=== PATIENT | female | born 1995 | race Caucasian/White ===

== ENCOUNTER → 2017-01-20 | Outpatient (REF) | payer OTHER ==
[~2017-01-20] MED LIST: ACET50TA PO; ANUS2.5C2 PR; COLA100C PO; DIBU1OIN TOP; FERR325T3 PO; IBUP80TA PO; PRENTAB55 PO; SYNT100T PO; VITA100037 PO; ZYRT10CA PO
== END ==
LOC: M LAB REF 16:20
PROVIDERS: ATTEND Physician Assistant
DX: J03.90 Acute tonsillitis, unspecified (principal)

== ENCOUNTER 2017-10-17 10:23 | Emergency (ER) | payer OTHER ==
[~2017-10-17] VITALS: Ht 160 cm; Wt 95.5 kg
[2017-10-17 10:23] VITALS: BP 131/70
[~2017-10-17 10:23] MED LIST changes: -COLA100C PO; +COLA100C5 PO; -VITA100037 PO; +VITA100067 PO
[2017-10-17] MEDS ORDERED: MONT10TA2 (10:35)
[2017-10-17] MEDS ORDERED: PROZ10CA7 PO (10:35)
[2017-10-17] MEDS ORDERED: JUNE1.5T (10:35)
[2017-10-17] MEDS ORDERED: MEDR4PAK PO (11:21)
[2017-10-17] MEDS ORDERED: AUGM875T28 PO (11:21)
[2017-10-17] MEDS ORDERED: TESS100C PO (11:21)
[2017-10-17] MEDS ORDERED: DIFL150T PO (11:26)
== END 2017-10-17 11:27 | disposition home or self-care (01) ==
LOC: M ED 10:23
DX: J01.90 Acute sinusitis, unspecified (principal)

== ENCOUNTER → 2017-12-10 | Outpatient (REF) | payer OTHER | LOC: M LAB REF 13:01 | DX: J11.1 Influenza due to unidentified influenza virus with other respiratory manifestations (principal) ==

== ENCOUNTER 2018-01-19 17:21 | Emergency (ER) | payer OTHER ==
[2018-01-19 18:49] LABS: KETONE, URINE AUTO RFX NEGATIVE (NEGATIVE); MUCUS, URINE RFX SMALL (NEGATIVE); NITRITE, URINE AUTO RFX NEGATIVE (NEGATIVE); RBC, URINE AUTO RFX 1 /HPF (0-3); SPECIFIC GRAVITY UR AUTO RFX 1.026 (1.002-1.035); SQUAM EPITHELIAL CELL UR AURFX 2 /HPF (0-6); WBC, URINE AUTO RFX 4 /HPF (0-3)
[2018-01-19 18:50] LABS: LEUKOCYTE ESTERASE UR AUTO RFX 1+ (NEGATIVE)
[2018-01-19 19:21] LABS: HCG, SERUM QUANTITATIVE 13123 MIU/ML
[2018-01-19] MEDS: ACETAMINOPHEN TAB 650MG DOSE (2X325MG) PO (19:51)
== END 2018-01-19 20:00 | disposition home or self-care (01) ==
LOC: M ED 17:21
DX: O26.891 Other specified pregnancy related conditions, first trimester (principal); R10.2 Pelvic and perineal pain; Z3A.01 Less than 8 weeks gestation of pregnancy; O99.341 Other mental disorders complicating pregnancy, first trimester; F33.9 Major depressive disorder, recurrent, unspecified; O99.281 Endocrine, nutritional and metabolic diseases complicating pregnancy, first trimester; E03.9 Hypothyroidism, unspecified; Z79.890 Hormone replacement therapy
CPT/HCPCS: 76801

== ENCOUNTER → 2018-02-22 | Outpatient (CLI) | payer MEDICAID ==
[2018-02-22 17:27] LABS: BASO % 0.2 % (0.0-1.0); EOS # 0.2 10^3/uL (0.0-0.50); EOS % 2.2 % (0.0-3.0); HEMATOCRIT 36.3 % (36.0-47.0); HEMOGLOBIN 12.3 g/dl (12.0-15.5); IMMATURE GRANULOCYTE % 0.6 % (0-3.0); LYMPH # 2.3 10^3/uL (1.5-6.5); LYMPH % 24.8 % (24.0-44.0); MEAN CORPUSCULAR HEMOGLOBIN 29.7 pg (27.0-33.0); MEAN CORPUSCULAR HGB CONC 33.9 g/dl (32.0-36.5); MEAN CORPUSCULAR VOLUME 87.7 fl (80.0-96.0); MONO # 0.3 10^3/uL (0.0-0.8); MONO % 3.2 % (0.0-5.0); NEUTROPHILS # 6.5 10^3/uL (1.8-7.7); PLATELET COUNT, AUTOMATED 234 10^3/uL (150-450); RED BLOOD COUNT 4.14 10^6/uL (4.00-5.40); RED CELL DISTRIBUTION WIDTH 13.1 % (11.5-14.5); WHITE BLOOD COUNT 9.4 10^3/uL (4.0-10.0)
[2018-02-22 17:31] LABS: ESTIMATED AVERAGE GLUCOSE 94 MG/DL (60-110); HEMOGLOBIN A1c 4.9 %
[2018-02-22 17:36] LABS: ALT/SGPT 40 U/L (12-78); AST/SGOT 18 U/L (7-37); BILIRUBIN,TOTAL 0.4 MG/DL (0.2-1.0); FREE T4 0.82 NG/DL (0.76-1.46); GLOMERULAR FILTRATION RATE > 60.0 (>60); GLUCOSE CHALLENGE TEST 1 HOUR 118 MG/DL (LESS THAN 140); LDH LACTATE DEHYDROGENASE 141 U/L (84-246); URIC ACID 4.9 MG/DL (2.6-6.0)
[2018-02-22 21:23] LABS: CHLAMYDIA DNA AMPLIFICATION NEGATIVE (NEGATIVE); GC DNA AMPLIFICATION NEGATIVE (NEGATIVE)
[2018-02-23 02:08] LABS: TOTAL PROTEIN,RANDOM URINE 13.6 MG/DL (0.0-12.0)
[2018-02-24 10:28] LABS: RUBELLA IgG QUALITATIVE IMMUNE (IMMUNE)
[2018-02-24 10:31] LABS: HBsAg Prenatal NEGATIVE (NEGATIVE)
[2018-02-24 10:56] LABS: HEPATITIS C VIRUS ABY INDEX < 0.0 INDEX (<0.8)
[2018-02-24 10:57] LABS: HIV 1&2 SCREEN CENTAUR NEGATIVE (NEGATIVE)
== END ==
LOC: M WUC 10:51
DX: Z36.89 Encounter for other specified antenatal screening (principal); Z3A.09 9 weeks gestation of pregnancy
CPT/HCPCS: 84460

== ENCOUNTER → 2018-04-30 | Outpatient (CLI) | payer MEDICAID | LOC: M RAD 17:38 | DX: Z34.82 Encounter for supervision of other normal pregnancy, second trimester (principal); Z36.89 Encounter for other specified antenatal screening; Z3A.20 20 weeks gestation of pregnancy | CPT/HCPCS: 76811 ==

== ENCOUNTER → 2018-06-13 | Outpatient (CLI) | payer MEDICAID ==
[2018-06-13 17:31] LABS: HEMATOCRIT 34.9 % (36.0-47.0); HEMOGLOBIN 11.7 g/dl (12.0-15.5); MEAN CORPUSCULAR HGB CONC 33.5 g/dl (32.0-36.5); MEAN CORPUSCULAR VOLUME 92.6 fl (80.0-96.0); PLATELET COUNT, AUTOMATED 233 10^3/uL (150-450); RED BLOOD COUNT 3.77 10^6/uL (4.00-5.40); RED CELL DISTRIBUTION WIDTH 13.3 % (11.5-14.5)
[2018-06-14 10:56] LABS: GLUCOSE CHALLENGE TEST 1 HOUR 168 MG/DL (LESS THAN 140)
[2018-06-14 10:56] LABS: WHITE BLOOD COUNT 10.9 10^3/uL (4.0-10.0)
[2018-06-15 06:35] LABS: AB SCREEN (INDIRECT COOMBS)VIS 1 1
== END ==
LOC: M LRY 09:41
DX: Z34.82 Encounter for supervision of other normal pregnancy, second trimester (principal)
CPT/HCPCS: 82950

== ENCOUNTER → 2018-06-15 | Outpatient (CLI) | payer MEDICAID ==
[2018-06-15 10:35] LABS: GLUCOSE, FASTING 77 MG/DL (LESS THAN 95)
[2018-06-15 11:37] LABS: 1 HR GLUCOSE 152 MG/DL (LESS THAN 180)
[2018-06-15 12:51] LABS: 2 HR GLUCOSE 104 MG/DL (LESS THAN 155)
[2018-06-15 13:16] LABS: 3 HR GLUCOSE 103 MG/DL (LESS THAN 140)
== END ==
LOC: M LAB 09:15
DX: Z34.83 Encounter for supervision of other normal pregnancy, third trimester (principal); R73.02 Impaired glucose tolerance (oral)
CPT/HCPCS: 82951

== ENCOUNTER → 2018-08-02 | Outpatient (REF) | payer MEDICAID | LOC: M LAB REF 15:16 | DX: O62.0 Primary inadequate contractions (principal) ==

== ENCOUNTER → 2018-08-13 | Outpatient (REF) | payer MEDICAID | LOC: M LAB REF 13:11 | DX: Z34.83 Encounter for supervision of other normal pregnancy, third trimester (principal) | CPT/HCPCS: 87186 ==

== ENCOUNTER 2018-08-23 20:54 | Inpatient (IN) | payer MEDICAID ==
[2018-08-23] MEDS ORDERED: ONDANSETRON 4MG/2ML VIAL (J2405) As Ordered (21:54)
[2018-08-23] MEDS: ONDANSETRON 4MG/2ML VIAL (J2405) IV (22:01)
[2018-08-23] MEDS: BETAMETHASONE SOLUSPAN 6MG/ML INJ 5ML (J0702) IM (22:01)
[2018-08-23] MEDS: LACTATED RINGER'S 1000 ML IV (22:02)
[2018-08-23] MEDS: PENICILLIN G POTASSIUM IV 5 MU in D5W MINI-BAG PLUS 100 ML IV (22:02)
[2018-08-23 22:06] LABS: HEMATOCRIT 36.2 % (36.0-47.0); MEAN CORPUSCULAR HEMOGLOBIN 28.2 pg (27.0-33.0); MEAN CORPUSCULAR HGB CONC 33.1 g/dl (32.0-36.5); MEAN CORPUSCULAR VOLUME 85.2 fl (80.0-96.0); PLATELET COUNT, AUTOMATED 219 10^3/uL (150-450); RED BLOOD COUNT 4.25 10^6/uL (4.00-5.40); RED CELL DISTRIBUTION WIDTH 12.9 % (11.5-14.5); WHITE BLOOD COUNT 10.8 10^3/uL (4.0-10.0)
[2018-08-23 22:17] LABS: AMPHETAMINES URINE REFLEX NEGATIVE (NEGATIVE); BARBITURATES URINE REFLEX NEGATIVE (NEGATIVE); BENZODIAZEPINES URINE REFLEX NEGATIVE (NEGATIVE); CANNABINOIDS URINE REFLEX NEGATIVE (NEGATIVE); COCAINE METABOLITE URINE REFLE NEGATIVE (NEGATIVE); METHADONE URINE REFLEX NEGATIVE (NEGATIVE); OPIATES URINE REFLEX NEGATIVE (NEGATIVE); PHENCYCLIDINE URINE REFLEX NEGATIVE (NEGATIVE)
[2018-08-23 22:27] LABS: FREE T4 0.74 NG/DL (0.76-1.46)
[2018-08-23] MEDS: BICITRA 30ML SOLN UDC PO (23:00)
[2018-08-24] MEDS: PENICILLIN G POTASSIUM IV 2.5 MU in APPROPRIATE DILUENT 1 EA IV ×5 (02:11→18:21)
[2018-08-24] MEDS: LR 1,000 ML IV ×3 (02:12→14:14)
[2018-08-24 08:37] LABS: THYROXINE (T4) 9.4 UG/DL (4.5-12.0)
[2018-08-24 08:37] LABS: FREE T3 2.5 PG/ML (2.2-4.0)
[2018-08-24] MEDS: LEVOTHYROXINE 125MCG TABLET (0.125MG) PO (08:42)
[2018-08-24] MEDS: FLUoxetine 20 MG CAP PO (08:42)
[2018-08-24 09:46] LABS: TOTAL T3 177.5 NG/DL (60.0-181.0)
[2018-08-24] MEDS: CALCIUM CARBONATE 500 MG CHEW U/D PO (09:57)
[2018-08-24] MEDS: ACETAMINOPHEN TAB 650MG DOSE (2X325MG) PO (14:15)
== END 2018-08-24 21:50 | disposition home or self-care (01) | DRG 563 ==
LOC: M LDO 20:54 → M LDI 21:20
PROVIDERS: Advanced Practice Midwife
DX: O60.03 Preterm labor without delivery, third trimester (principal); E03.9 Hypothyroidism, unspecified; Z3A.36 36 weeks gestation of pregnancy; O99.820 Streptococcus B carrier state complicating pregnancy; O99.283 Endocrine, nutritional and metabolic diseases complicating pregnancy, third trimester

== ENCOUNTER → 2018-09-02 | Outpatient (REF) | payer MEDICAID | LOC: M LAB REF 13:55 | DX: Z34.83 Encounter for supervision of other normal pregnancy, third trimester (principal); R31.0 Gross hematuria ==

== ENCOUNTER 2018-09-03 21:35 | Inpatient (IN) | payer MEDICAID ==
[2018-09-03] MEDS: PENICILLIN G POTASSIUM IV 5 MU in D5W MINI-BAG PLUS 100 ML IV (23:15)
[2018-09-03 23:21] LABS: HEMOGLOBIN 11.7 g/dl (12.0-15.5); MEAN CORPUSCULAR HEMOGLOBIN 27.8 pg (27.0-33.0); MEAN CORPUSCULAR HGB CONC 32.5 g/dl (32.0-36.5); MEAN CORPUSCULAR VOLUME 85.5 fl (80.0-96.0); PLATELET COUNT, AUTOMATED 224 10^3/uL (150-450); RED BLOOD COUNT 4.21 10^6/uL (4.00-5.40); RED CELL DISTRIBUTION WIDTH 13.1 % (11.5-14.5); WHITE BLOOD COUNT 13.7 10^3/uL (4.0-10.0)
[2018-09-04] MEDS: CEPHALEXIN 500 MG CAP PO ×5 (00:27→23:51)
[2018-09-04] MEDS: PENICILLIN G POTASSIUM IV 2.5 MU in APPROPRIATE DILUENT 1 EA IV ×2 (03:14→07:38)
[2018-09-04] MEDS: BUTORPHANOL 2 MG/ML INJ (J0595) IV (05:11)
[2018-09-04] MEDS: PROMETHAZINE INJ 25 MG/ML VIAL (J2550) IV (05:12)
[2018-09-04] MEDS: LEVOTHYROXINE 125MCG TABLET (0.125MG) PO (06:04)
[2018-09-04] MEDS ORDERED: FENTANYL 2MCG/ML ROPIVACAINE 0.2% IN 0.9% NACL 200ML IVBAG As Ordered (06:27)
[2018-09-04] MEDS: FENTANYL/ROPIVACAINE/NACL BAG 200 ML EPIDURAL (07:45)
[2018-09-04] MEDS ORDERED: ePHEDrine SULFATE 25 MG/5 ML(5MG/ML) SYRINGE As Ordered (08:24)
[2018-09-04] MEDS ORDERED: EPIDURAL COMMENT XX (08:45)
[2018-09-04] MEDS ORDERED: EPIDURAL/PCA KEYS XX (08:45)
[2018-09-04] MEDS ORDERED: NALOXONE INJ 0.4 MG/1 ML VIAL (J2310) IV (08:45)
[2018-09-04] MEDS ORDERED: ePHEDrine SULFATE 25 MG/5 ML(5MG/ML) SYRINGE IV (08:45)
[2018-09-04] MEDS ORDERED: LACTATED RINGER'S 1000 ML IV (08:45)
[2018-09-04] MEDS ORDERED: ONDANSETRON 4MG/2ML VIAL (J2405) IV (08:45)
[2018-09-04] MEDS ORDERED: REFRIGERATOR IV KEYS XX (08:45)
[2018-09-04] MEDS ORDERED: diphenhydrAMINE INJ 50MG/ML VIAL (J1200) IV (08:45)
[2018-09-04] MEDS ORDERED: OXYTOCIN 30 UNITS IN 0.9% NaCl 500ML IV BAG (J2590) As Ordered (08:46)
[2018-09-04] MEDS: PRENATAL VITAMINS CHEWABLE TABLET PO (09:00)
[2018-09-04 09:37] LABS: CORD GAS ABE V -5.3; CORD GAS HCO3 V 18.8 MEQ/L; CORD GAS PCO2 V 32.9 mmHg; CORD GAS PH V 7.374 UNITS; CORD GAS PO2 V 27.9 mmHg; CORD GAS SBC V 19.5 MEQ/L; CORD GAS TCO2 V 19.8 MEQ/L
[2018-09-04 09:40] LABS: CORD GAS ABE A -7.2; CORD GAS HCO3 A 22.9 MEQ/L; CORD GAS O2 SAT A 39.6 %; CORD GAS PCO2 A 66.3 mmHg; CORD GAS PH A 7.157 UNITS; CORD GAS PO2 A 21.4 mmHg; CORD GAS SBC A 17.4 MEQ/L
[2018-09-04] MEDS ORDERED: MEASLES,MUMPS,RUBELLA VACCINE INJ (MMR-II) (90707) SC (10:00)
[2018-09-04] MEDS ORDERED: ANUSOL HC CREAM 30GM TOP (10:00)
[2018-09-04] MEDS: OXYTOCIN DRIP 30 UNITS in APPROPRIATE DILUENT 1 EA IV (10:00)
[2018-09-04] MEDS ORDERED: DOCUSATE SODIUM 100 MG CAP PO (10:00)
[2018-09-04] MEDS ORDERED: METHYLERGONOVINE MALEATE 0.2 MG TAB PO (10:00)
[2018-09-04] MEDS: FLUoxetine 10 MG CAP PO (12:10)
[2018-09-04] MEDS: DIBUCAINE 1% OINTMENT 30GM TOP (14:43)
[2018-09-04] MEDS: IBUPROFEN 800 MG TAB PO (14:44)
[2018-09-04] MEDS: ACETAMINOPHEN 500 MG TAB PO (15:53)
[2018-09-05] MEDS: IBUPROFEN 800 MG TAB PO ×3 (00:48→18:24)
[2018-09-05] MEDS: CEPHALEXIN 500 MG CAP PO ×4 (06:17→23:58)
[2018-09-05] MEDS: LEVOTHYROXINE 125MCG TABLET (0.125MG) PO (06:17)
[2018-09-05 06:51] LABS: HEMATOCRIT 28.7 % (36.0-47.0); MEAN CORPUSCULAR HEMOGLOBIN 27.5 pg (27.0-33.0); MEAN CORPUSCULAR HGB CONC 32.1 g/dl (32.0-36.5); MEAN CORPUSCULAR VOLUME 85.7 fl (80.0-96.0); PLATELET COUNT, AUTOMATED 185 10^3/uL (150-450); RED BLOOD COUNT 3.35 10^6/uL (4.00-5.40); RED CELL DISTRIBUTION WIDTH 13.2 % (11.5-14.5); WHITE BLOOD COUNT 12.9 10^3/uL (4.0-10.0)
[2018-09-05 06:58] LABS: HEMOGLOBIN 9.2 g/dl (12.0-15.5)
[2018-09-05] MEDS ORDERED: FLUoxetine 20 MG CAP PO (09:00)
[2018-09-05] MEDS: INFLUENZA QUADRIVALENT PF VACCINE 0.5ML SYRINGE (90686) IM (09:47)
[2018-09-05] MEDS: ADACEL/BOOSTRIX VACCINE (DIPHTH/PERTUSS/ACELL/TETANUS)0.5ML SYR (90715) IM (09:48)
[2018-09-05] MEDS: FLUoxetine 10 MG CAP PO (09:54)
[2018-09-05] MEDS: PRENATAL VITAMINS CHEWABLE TABLET PO (09:55)
[2018-09-06] MEDS: ACETAMINOPHEN 500 MG TAB PO ×2 (00:35→11:57)
[2018-09-06] MEDS: IBUPROFEN 800 MG TAB PO (03:44)
[2018-09-06] MEDS: LEVOTHYROXINE 125MCG TABLET (0.125MG) PO (06:00)
[2018-09-06] MEDS: CEPHALEXIN 500 MG CAP PO ×2 (06:00→13:34)
[2018-09-06 08:42] LABS: FETAL SCREEN PROF. 1 1
[2018-09-06] MEDS: PRENATAL VITAMINS CHEWABLE TABLET PO (09:08)
[2018-09-06] MEDS: FLUoxetine 20 MG CAP PO (09:08)
[2018-09-06] MEDS: RHOGAM 300 MCG (1500 IU) INJ (J2790) IM (09:11)
== END 2018-09-06 14:30 | disposition home or self-care (01) | DRG 560 ==
LOC: M LDO 21:35 → M OBS 09-04 12:22 → M LDI 22:53
PROVIDERS: Advanced Practice Midwife
PROC: 10E0XZZ Delivery of Products of Conception, External Approach (ICD-10-PCS; principal; 2018-09-04)
PROC: 0HQ9XZZ Repair Perineum Skin, External Approach (ICD-10-PCS; 2018-09-04)
PROC: 10907ZC Drainage of Amniotic Fluid, Therapeutic from Products of Conception, Via Natural or Artificial Opening (ICD-10-PCS; 2018-09-04)
DX: O99.284 Endocrine, nutritional and metabolic diseases complicating childbirth (principal); E03.9 Hypothyroidism, unspecified; Z37.0 Single live birth; Z3A.38 38 weeks gestation of pregnancy; Z91.14 Patient's other noncompliance with medication regimen; O69.82X0 Labor and delivery complicated by other cord entanglement, without compression, not applicable or unspecified; O99.820 Streptococcus B carrier state complicating pregnancy; O70.0 First degree perineal laceration during delivery

== ENCOUNTER → 2019-01-17 | Outpatient (REF) | payer MEDICAID ==
[~2019-01-17] MED LIST changes: -ACET50TA PO; +AUGM875T28 PO; +DIFL150T PO; +IBUP-1114 PO; +JUNE1.5T; +KEFL500C17 PO; +MAPA500T2 PO; +MEDR4PAK PO; +MONT10TA2; +PRENATAL VIT; +PROZ10CA7 PO; +PROZ20CA11 PO; +PYRI1TAB5 PO; +TESS100C PO
[2019-01-17 19:33] LABS: BASO # 0.1 10^3/uL (0.0-0.2); BASO % 0.6 % (0.0-1.0); EOS # 0.7 10^3/uL (0.0-0.50); EOS % 6.2 % (0.0-3.0); HEMATOCRIT 42.5 % (36.0-47.0); HEMOGLOBIN 13.9 g/dl (12.0-15.5); LYMPH # 3.6 10^3/uL (1.5-6.5); LYMPH % 33.1 % (24.0-44.0); MEAN CORPUSCULAR HGB CONC 32.7 g/dl (32.0-36.5); MEAN CORPUSCULAR VOLUME 82.7 fl (80.0-96.0); MONO # 0.4 10^3/uL (0.0-0.8); MONO % 3.9 % (0.0-5.0); NEUTROPHILS # 6.1 10^3/uL (1.8-7.7); NEUTROPHILS % 55.9 % (36.0-66.0); PLATELET COUNT, AUTOMATED 346 10^3/uL (150-450); RED BLOOD COUNT 5.14 10^6/uL (4.00-5.40); WHITE BLOOD COUNT 10.9 10^3/uL (4.0-10.0)
[2019-01-17 19:41] LABS: ALBUMIN 3.6 GM/DL (3.2-5.2); ALT/SGPT 38 U/L (12-78); BILIRUBIN,TOTAL 0.3 MG/DL (0.2-1.0); BLOOD UREA NITROGEN 13 MG/DL (7-18); CALCIUM LEVEL 8.9 MG/DL (8.5-10.1); CARBON DIOXIDE LEVEL 28 MEQ/L (21-32); CHLORIDE LEVEL 105 MEQ/L (98-107); CHOLESTEROL LEVEL 293 MG/DL (<200); CHOLESTEROL RISK RATIO 5.634 (<5); CREATININE FOR GFR 0.72 MG/DL (0.55-1.30); FREE T4 0.58 NG/DL (0.76-1.46); GLOMERULAR FILTRATION RATE > 60.0 (>60); GLUCOSE, FASTING 107 MG/DL (70-100); HDL CHOLESTEROL 52 MG/DL (>40); LDL CHOLESTEROL 179 MG/DL (<100); NON-HDL-C 241 MG/DL; POTASSIUM SERUM 3.9 MEQ/L (3.5-5.1); SODIUM LEVEL 139 MEQ/L (136-145); TOTAL PROTEIN 7.4 GM/DL (6.4-8.2); TRIGLYCERIDES LEVEL 310 MG/DL (<150)
[2019-01-17 19:44] LABS: TOTAL 25(OH) VITAMIN D 8.2 NG/ML (30.0-100.0)
[2019-01-17 19:55] LABS: HEMOGLOBIN A1c 5.5 %
[2019-01-19 14:12] LABS: Lyme Disease IgG/IgM Antibodie <0.91 ISR (0.00-0.90); Lyme Disease IgM Ab Quantitati <0.80 index (0.00-0.79)
== END ==
LOC: M LAB REF 18:46
PROVIDERS: ATTEND Family Medicine
DX: Z13.228 Encounter for screening for other metabolic disorders (principal); Z00.01 Encounter for general adult medical examination with abnormal findings; F53.0 Postpartum depression

== ENCOUNTER → 2019-03-12 | Outpatient (REF) | payer MEDICAID ==
[2019-03-12 20:16] LABS: APPEARANCE, URINE CLEAR (CLEAR); BACTERIA, URINE AUTO NEGATIVE (NEGATIVE); BILIRUBIN, URINE AUTO NEGATIVE (NEGATIVE); BLOOD, URINE BLOOD NEGATIVE (NEGATIVE); COLOR, URINE YELLOW (YELLOW); GLUCOSE, URINE (UA) AUTO NEGATIVE (NEGATIVE); KETONE, URINE AUTO NEGATIVE (NEGATIVE); LEUKOCYTE ESTERASE, URINE AUTO NEGATIVE (NEGATIVE); MUCUS, URINE SMALL (NEGATIVE); NITRITE, URINE AUTO NEGATIVE (NEGATIVE); PROTEIN, URINE AUTO NEGATIVE (NEGATIVE); RBC, URINE AUTO 0 /HPF (0-3); SPECIFIC GRAVITY URINE AUTO 1.026 (1.002-1.035); SQUAMOUS EPITHELIAL CELL UR AU 5 /HPF (0-6); UROBILINOGEN, URINE AUTO 0.2 mg/dL (0.0-2.0); WBC, URINE AUTO 2 /HPF (0-3)
== END ==
LOC: M LAB REF 18:01
PROVIDERS: ATTEND Nurse Practitioner Family
DX: N39.0 Urinary tract infection, site not specified (principal)

== ENCOUNTER → 2019-05-04 | Outpatient (REF) | payer MEDICAID ==
[2019-05-04 12:51] LABS: ALBUMIN 3.4 GM/DL (3.2-5.2); ALT/SGPT 25 U/L (12-78); BILIRUBIN,TOTAL 0.3 MG/DL (0.2-1.0); BLOOD UREA NITROGEN 14 MG/DL (7-18); CALCIUM LEVEL 8.4 MG/DL (8.5-10.1); CARBON DIOXIDE LEVEL 23 MEQ/L (21-32); CHLORIDE LEVEL 109 MEQ/L (98-107); CHOLESTEROL LEVEL 203 MG/DL (<200); CREATININE FOR GFR 0.68 MG/DL (0.55-1.30); GLOMERULAR FILTRATION RATE > 60.0 (>60); GLUCOSE, FASTING 80 MG/DL (70-100); HDL CHOLESTEROL 51 MG/DL (>40); LDL CHOLESTEROL 113 MG/DL (<100); NON-HDL-C 152 MG/DL; POTASSIUM SERUM 4.1 MEQ/L (3.5-5.1); SODIUM LEVEL 141 MEQ/L (136-145); TOTAL PROTEIN 6.8 GM/DL (6.4-8.2); TRIGLYCERIDES LEVEL 197 MG/DL (<150)
[2019-05-04 13:17] LABS: HEMOGLOBIN A1c 5.5 %
== END ==
LOC: M LAB REF 12:26
PROVIDERS: ATTEND Family Medicine
DX: Z13.228 Encounter for screening for other metabolic disorders (principal); E78.5 Hyperlipidemia, unspecified

== ENCOUNTER → 2019-10-03 | Outpatient (REF) | payer MEDICAID ==
[2019-10-03 18:46] LABS: APPEARANCE, URINE CLOUDY (CLEAR); BACTERIA, URINE AUTO NEGATIVE (NEGATIVE); BILIRUBIN, URINE AUTO NEGATIVE (NEGATIVE); BLOOD, URINE BLOOD 1+ (NEGATIVE); COLOR, URINE YELLOW (YELLOW); GLUCOSE, URINE (UA) AUTO NEGATIVE (NEGATIVE); KETONE, URINE AUTO NEGATIVE (NEGATIVE); LEUKOCYTE ESTERASE, URINE AUTO 3+ (NEGATIVE); NITRITE, URINE AUTO NEGATIVE (NEGATIVE); PROTEIN, URINE AUTO NEGATIVE (NEGATIVE); RBC, URINE AUTO 63 /HPF (0-3); SPECIFIC GRAVITY URINE AUTO 1.019 (1.002-1.035); SQUAMOUS EPITHELIAL CELL UR AU 9 /HPF (0-6); UROBILINOGEN, URINE AUTO 0.2 mg/dL (0.0-2.0); WBC, URINE AUTO 84 /HPF (0-3)
[2019-10-03 20:36] LABS: CHLAMYDIA DNA AMPLIFICATION NEGATIVE (NEGATIVE); GC DNA AMPLIFICATION NEGATIVE (NEGATIVE)
== END ==
LOC: M LAB REF 17:08
PROVIDERS: ATTEND Nurse Practitioner Family
DX: Z11.3 Encounter for screening for infections with a predominantly sexual mode of transmission (principal); R30.0 Dysuria

== ENCOUNTER 2019-11-01 17:15 | Emergency (ER) | payer OTHER ==
[~2019-11-01] VITALS: Ht 157.5 cm; Wt 104.0 kg
[2019-11-01] MEDS ORDERED: tylenol (17:24)
[2019-11-01] MEDS ORDERED: ALBU8.5H (17:24)
[2019-11-01] MEDS ORDERED: LORA-674 (17:24)
[2019-11-01] MEDS ORDERED: BENZ-18 (17:24)
[2019-11-01] MEDS ORDERED: AZIT-12 (17:24)
[2019-11-01] MEDS ORDERED: ONDANSETRON 4 MG ORAL DISINTEGRATING TAB (Q0162 PER 1MG) PO ONE (19:30)
[2019-11-01] MEDS ORDERED: KETOROLAC 30 MG/ML VIAL (J1885) IV ONE (19:30)
[2019-11-01] MEDS ORDERED: GI COCKTAIL 50ML BTL(HYOSCYAMINE/MAALOX/LIDOCAINE VISCOUS)(1:3:1) PO ONE (19:30)
[2019-11-01] MEDS ORDERED: ALBUTEROL SULFATE 2.5 MG/0.5 ML INH NEB SOLN NEB ONE (19:30)
[2019-11-01 19:57] LABS: BASO % 0.2 % (0.0-1.0); EOS % 0.1 % (0.0-3.0); HEMATOCRIT 42.3 % (36.0-47.0); HEMOGLOBIN 13.9 g/dl (12.0-15.5); LYMPH # 2.1 10^3/uL (1.5-5.0); LYMPH % 11.4 % (24.0-44.0); MEAN CORPUSCULAR HGB CONC 32.9 g/dl (32.0-36.5); MEAN CORPUSCULAR VOLUME 88.3 fl (80.0-96.0); MONO # 0.7 10^3/uL (0.0-0.8); MONO % 3.6 % (0.0-5.0); NEUTROPHILS # 15.5 10^3/uL (1.5-8.5); NEUTROPHILS % 84.3 % (36.0-66.0); PLATELET COUNT, AUTOMATED 221 10^3/uL (150-450); RED BLOOD COUNT 4.79 10^6/uL (4.00-5.40); WHITE BLOOD COUNT 18.4 10^3/uL (4.0-10.0)
--- NOTE | 2019-11-01 19:57 | REP ---
Chest x-ray: Two views. History: Cough and fever. Comparison study: September 18, 2016. Findings: There is an infiltrate in the left lower lobe consistent with pneumonia. Remaining lung shine are clear. Pleural angles are sharp. Heart size is normal. Pulmonary vasculature is not increased. No bony abnormality. Impression: Left lower lobe pneumonia. Electronically Signed by Hemal Cunningham MD 11/01/2019 07:49 P
[2019-11-01 20:28] LABS: ALBUMIN 3.4 GM/DL (3.2-5.2); ALT/SGPT 42 U/L (12-78); BILIRUBIN,DIRECT 0.2 MG/DL (0.0-0.2); BILIRUBIN,TOTAL 0.7 MG/DL (0.2-1.0); LIPASE 65 U/L (73-393); TOTAL PROTEIN 7.7 GM/DL (6.4-8.2)
[2019-11-01] MEDS ORDERED: ONDANSETRON 4MG/2ML VIAL (J2405) IV ONE (20:45)
[2019-11-01] MEDS ORDERED: NS 1,000 ML IV ONE (20:45)
[2019-11-01] MEDS ORDERED: ISOVUE-370 76% 100ML VIAL (Q9967) As Ordered ONE (20:56)
[2019-11-01 21:41] LABS: HCG, SERUM QUALITATIVE NEGATIVE (NEGATIVE)
--- NOTE | 2019-11-01 22:42 | REPVR ---
PROCEDURE INFORMATION: Exam: CT Angiography Chest With Contrast Exam date and time: 11/01/2019 10:16 PM Age: 24 years old Clinical indication: Chest pain; Additional info: Pleuritic chest pain, SOB, cough TECHNIQUE: Imaging protocol: Computed tomographic angiography of the chest with intravenous contrast. 3D rendering: MIP and/or 3D reconstructed images were created by the technologist. Radiation optimization: All CT scans at this facility use at least one of these dose optimization techniques: automated exposure control; mA and/or kV adjustment per patient size (includes targeted exams where dose is matched to clinical indication); or iterative reconstruction. Contrast material: ISOVUE 370; Contrast volume: 75 ml; Contrast route: 100; COMPARISON: CR Chest, 2 view PA, Lat 11/01/2019 7:34 PM FINDINGS: Pulmonary arteries: There are no pulmonary emboli. Aorta: There is no aortic dissection or aneurysm. Lungs: Patchy left lower lobe airspace infiltrate consistent with acute pneumonitis. Remaining lungs clear. Pleural space: Unremarkable. No pneumothorax. No pleural effusion. Heart: Unremarkable. No cardiomegaly. No pericardial effusion. Lymph nodes: Unremarkable. No enlarged lymph nodes. Bones/joints: Unremarkable. No acute fracture. Soft tissues: Unremarkable. IMPRESSION: 1. Patchy left lower lobe airspace infiltrate consistent with acute pneumonitis. 2. There is no aortic dissection or aneurysm. 3. There are no pulmonary emboli. Electronically signed by: Isaias Carr On 11/01/2019 22:42:50 PM
[2019-11-01] MEDS ORDERED: AMOX500C PO (23:00)
[2019-11-01] MEDS ORDERED: PROAAER10 INH (23:00)
[2019-11-01] MEDS ORDERED: AMOXICILLIN 500 MG CAP PO ONE (23:00)
[2019-11-01] MEDS ORDERED: TESS100C PO (23:00)
[2019-11-01] MEDS ORDERED: NAPR-837 PO (23:00)
[2019-11-01 23:08] VITALS: BP 132/74
== END 2019-11-01 23:11 | disposition home or self-care (01) ==
LOC: M ED 17:15
DX: J18.9 Pneumonia, unspecified organism (principal); M79.10 Myalgia, unspecified site; R10.13 Epigastric pain; Z79.1 Long term (current) use of non-steroidal anti-inflammatories (NSAID); Z79.51 Long term (current) use of inhaled steroids; Z79.899 Other long term (current) drug therapy
CPT/HCPCS: 71046; 71275; 80047; 80076; 81001; 83690; 84702; 84703; 85025; 85379; 94640; 96361; 96374; 96375; 99284; J1885; J2405; Q0162; Q9967

== ENCOUNTER → 2019-11-30 | Outpatient (REF) | payer OTHER, MEDICAID ==
[~2019-11-30] MED LIST changes: +ALBU8.5H; +AMOX500C PO; +AZIT-12; +BENZ-18; +LORA-674; +NAPR-837 PO; +PROAAER10 INH; +tylenol
[2019-11-30 14:15] LABS: BASO # 0.1 10^3/uL (0.0-0.2); BASO % 0.8 % (0.0-1.0); EOS # 0.9 10^3/uL (0.0-0.5); EOS % 7.3 % (0.0-3.0); HEMATOCRIT 41.2 % (36.0-47.0); HEMOGLOBIN 13.5 g/dl (12.0-15.5); LYMPH # 3.2 10^3/uL (1.5-5.0); LYMPH % 26.5 % (24.0-44.0); MEAN CORPUSCULAR HEMOGLOBIN 29.4 pg (27.0-33.0); MEAN CORPUSCULAR HGB CONC 32.8 g/dl (32.0-36.5); MEAN CORPUSCULAR VOLUME 89.8 fl (80.0-96.0); MONO # 0.6 10^3/uL (0.0-0.8); MONO % 4.9 % (0.0-5.0); NEUTROPHILS # 7.2 10^3/uL (1.5-8.5); NEUTROPHILS % 60.3 % (36.0-66.0); PLATELET COUNT, AUTOMATED 284 10^3/uL (150-450); RED BLOOD COUNT 4.59 10^6/uL (4.00-5.40); WHITE BLOOD COUNT 11.9 10^3/uL (4.0-10.0)
[2019-11-30 14:32] LABS: HEMOGLOBIN A1c 5.5 %
[2019-11-30 15:00] LABS: ALBUMIN 3.8 GM/DL (3.2-5.2); ALT/SGPT 34 U/L (12-78); BILIRUBIN,TOTAL 0.3 MG/DL (0.2-1.0); BLOOD UREA NITROGEN 12 MG/DL (7-18); CALCIUM LEVEL 9.2 MG/DL (8.5-10.1); CARBON DIOXIDE LEVEL 22 MEQ/L (21-32); CHLORIDE LEVEL 110 MEQ/L (98-107); CHOLESTEROL LEVEL 195 MG/DL (<200); CHOLESTEROL RISK RATIO 4.756 (<5); CREATININE FOR GFR 0.78 MG/DL (0.55-1.30); FREE T4 0.62 NG/DL (0.76-1.46); GLOMERULAR FILTRATION RATE > 60.0 (>60); GLUCOSE, FASTING 82 MG/DL (70-100); HDL CHOLESTEROL 41 MG/DL (>40); LDL CHOLESTEROL 116 MG/DL (<100); NON-HDL-C 154 MG/DL; POTASSIUM SERUM 4.4 MEQ/L (3.5-5.1); SODIUM LEVEL 140 MEQ/L (136-145); TOTAL 25(OH) VITAMIN D 13.7 NG/ML (30.0-100.0); TOTAL PROTEIN 7.1 GM/DL (6.4-8.2); TRIGLYCERIDES LEVEL 189 MG/DL (<150)
== END ==
LOC: M LAB REF 12:39
PROVIDERS: ATTEND Physician Assistant
DX: J45.40 Moderate persistent asthma, uncomplicated (principal); E03.9 Hypothyroidism, unspecified; R73.03 Prediabetes; E55.9 Vitamin D deficiency, unspecified; E78.5 Hyperlipidemia, unspecified

== ENCOUNTER → 2020-01-05 | Outpatient (REF) | payer OTHER, MEDICAID ==
[~2020-01-05] MED LIST changes: -MONT10TA2; +MONT10TA4
== END ==
LOC: M LAB REF 15:23 → EEVIPCON 15:23
PROVIDERS: ATTEND Physician Assistant
DX: S81.809A Unspecified open wound, unspecified lower leg, initial encounter (principal); X58.XXXA Exposure to other specified factors, initial encounter

== ENCOUNTER → 2020-04-13 | Outpatient (REF) | payer OTHER, MEDICAID ==
[2020-04-13 13:15] LABS: CHOLESTEROL LEVEL 228 MG/DL (<200); HDL CHOLESTEROL 40 MG/DL (>40); LDL CHOLESTEROL 127 MG/DL (<100); NON-HDL-C 188 MG/DL; TRIGLYCERIDES LEVEL 303 MG/DL (<150)
[2020-04-13 17:54] LABS: THYROID PEROXIDASE ANTIBODY > 1300.0 U/ML (<60.0); TOTAL T3 146.4 NG/DL (60.0-181.0)
== END ==
LOC: M LAB REF 12:12
PROVIDERS: ATTEND Family Medicine
DX: E03.9 Hypothyroidism, unspecified (principal); A49.02 Methicillin resistant Staphylococcus aureus infection, unspecified site

== ENCOUNTER → 2020-07-20 | Outpatient (REF) | payer OTHER, MEDICAID ==
[2020-07-20 13:01] LABS: BASO # 0.1 10^3/uL (0.0-0.2); BASO % 1.1 % (0.0-1.0); EOS # 0.8 10^3/uL (0.0-0.5); EOS % 9.1 % (0.0-3.0); HEMATOCRIT 42.9 % (36.0-47.0); HEMOGLOBIN 13.9 g/dl (12.0-15.5); LYMPH % 36.7 % (24.0-44.0); MEAN CORPUSCULAR HEMOGLOBIN 28.8 pg (27.0-33.0); MEAN CORPUSCULAR HGB CONC 32.4 g/dl (32.0-36.5); MEAN CORPUSCULAR VOLUME 88.8 fl (80.0-96.0); MONO # 0.5 10^3/uL (0.0-0.8); MONO % 5.6 % (0.0-5.0); NEUTROPHILS # 3.9 10^3/uL (1.5-8.5); NEUTROPHILS % 47.1 % (36.0-66.0); PLATELET COUNT, AUTOMATED 259 10^3/uL (150-450); RED BLOOD COUNT 4.83 10^6/uL (4.00-5.40); WHITE BLOOD COUNT 8.3 10^3/uL (4.0-10.0)
[2020-07-20 13:13] LABS: ALBUMIN 3.5 GM/DL (3.2-5.2); ALT/SGPT 58 U/L (12-78); BILIRUBIN,TOTAL 0.4 MG/DL (0.2-1.0); BLOOD UREA NITROGEN 17 MG/DL (7-18); CALCIUM LEVEL 9.1 MG/DL (8.5-10.1); CARBON DIOXIDE LEVEL 24 MEQ/L (21-32); CHLORIDE LEVEL 107 MEQ/L (98-107); CREATININE FOR GFR 0.63 MG/DL (0.55-1.30); FREE T4 0.66 NG/DL (0.76-1.46); GLOMERULAR FILTRATION RATE > 60.0 (>60); GLUCOSE, FASTING 97 MG/DL (70-100); POTASSIUM SERUM 4.5 MEQ/L (3.5-5.1); SODIUM LEVEL 139 MEQ/L (136-145); TOTAL PROTEIN 6.8 GM/DL (6.4-8.2)
[2020-07-20 16:09] LABS: TOTAL T3 148.8 NG/DL (60.0-181.0)
[2020-07-23 09:56] LABS: THYROID PEROXIDASE ANTIBODY > 1300.0 U/ML (<60.0)
== END ==
LOC: M LAB REF 11:43
PROVIDERS: ATTEND Family Medicine Addiction Medicine
DX: E06.3 Autoimmune thyroiditis (principal)

== ENCOUNTER → 2020-09-28 | Outpatient (REF) | payer OTHER, MEDICAID ==
[~2020-09-28] MED LIST changes: -MONT10TA4; +MONT5TAB2
[2020-09-28 13:22] LABS: ALBUMIN 3.7 GM/DL (3.2-5.2); ALT/SGPT 43 U/L (12-78); BILIRUBIN,TOTAL 0.4 MG/DL (0.2-1.0); BLOOD UREA NITROGEN 15 MG/DL (7-18); CALCIUM LEVEL 9.3 MG/DL (8.5-10.1); CARBON DIOXIDE LEVEL 26 MEQ/L (21-32); CHLORIDE LEVEL 106 MEQ/L (98-107); CHOLESTEROL LEVEL 165 MG/DL (<200); CHOLESTEROL RISK RATIO 4.125 (<5); CREATININE FOR GFR 0.66 MG/DL (0.55-1.30); GLOMERULAR FILTRATION RATE > 60.0 (>60); GLUCOSE, FASTING 94 MG/DL (70-100); HDL CHOLESTEROL 40 MG/DL (>40); LDL CHOLESTEROL 82 MG/DL (<100); NON-HDL-C 125 MG/DL; POTASSIUM SERUM 4.4 MEQ/L (3.5-5.1); SODIUM LEVEL 139 MEQ/L (136-145); TOTAL PROTEIN 6.8 GM/DL (6.4-8.2); TRIGLYCERIDES LEVEL 217 MG/DL (<150)
== END ==
LOC: M LAB REF 11:54
PROVIDERS: ATTEND Family Medicine Addiction Medicine
DX: E03.9 Hypothyroidism, unspecified (principal)

== ENCOUNTER → 2020-12-21 | Outpatient (REF) | payer OTHER, MEDICAID ==
[~2020-12-21] MED LIST changes: +MONT10TA10; -MONT5TAB2
[2020-12-21 13:06] LABS: CHOLESTEROL RISK RATIO 4.404 (<5)
== END ==
LOC: M LAB REF 11:47
PROVIDERS: ATTEND Family Medicine Addiction Medicine
DX: Z00.00 Encounter for general adult medical examination without abnormal findings (principal)

== ENCOUNTER → 2021-02-22 | Outpatient (REF) | payer OTHER ==
[2021-02-22 17:52] LABS: BASO # 0.1 10^3/uL (0.0-0.2); BASO % 0.8 % (0.0-1.0); EOS # 0.7 10^3/uL (0.0-0.5); EOS % 6.1 % (0.0-3.0); HEMATOCRIT 44.5 % (36.0-47.0); HEMOGLOBIN 14.4 g/dl (12.0-15.5); LYMPH # 3.7 10^3/uL (1.5-5.0); LYMPH % 34.1 % (24.0-44.0); MEAN CORPUSCULAR HEMOGLOBIN 28.6 pg (27.0-33.0); MEAN CORPUSCULAR HGB CONC 32.4 g/dl (32.0-36.5); MEAN CORPUSCULAR VOLUME 88.3 fl (80.0-96.0); MONO # 0.5 10^3/uL (0.0-0.8); MONO % 4.9 % (2.0-8.0); NEUTROPHILS # 5.9 10^3/uL (1.5-8.5); NEUTROPHILS % 53.8 % (36.0-66.0); PLATELET COUNT, AUTOMATED 304 10^3/uL (150-450); RED BLOOD COUNT 5.04 10^6/uL (4.00-5.40)
== END ==
LOC: M LAB REF 16:57
PROVIDERS: ATTEND Family Medicine Addiction Medicine
DX: N92.0 Excessive and frequent menstruation with regular cycle (principal)

== ENCOUNTER → 2021-05-07 | Outpatient (REF) | payer OTHER ==
[2021-05-07 20:18] LABS: CLOSTRIDIUM DIFFICILE PCR POSITIVE (NEGATIVE)
== END ==
LOC: M LAB REF 16:03
PROVIDERS: ATTEND Physician Assistant Surgical
DX: K91.89 Other postprocedural complications and disorders of digestive system (principal); R19.7 Diarrhea, unspecified; Z98.84 Bariatric surgery status

== ENCOUNTER → 2021-05-27 | Outpatient (CLI) | payer OTHER ==
[2021-05-27 17:31] LABS: ALBUMIN 3.9 GM/DL (3.2-5.2); ALT/SGPT 103 U/L (12-78); BILIRUBIN,TOTAL 0.6 MG/DL (0.2-1.0); BLOOD UREA NITROGEN 9 MG/DL (7-18); CALCIUM LEVEL 9.3 MG/DL (8.5-10.1); CARBON DIOXIDE LEVEL 27 MEQ/L (21-32); CHLORIDE LEVEL 111 MEQ/L (98-107); CREATININE FOR GFR 0.57 MG/DL (0.55-1.30); FERRITIN 75 NG/ML (8-252); GLOMERULAR FILTRATION RATE > 60.0 (>60); GLUCOSE, FASTING 83 MG/DL (70-100); IRON (FE) 64 UG/DL (50-170); MAGNESIUM LEVEL 1.8 MG/DL (1.8-2.4); PERCENT SATURATION 20.8 % (13.2-45.0); PHOSPHORUS LEVEL 3.3 MG/DL (2.5-4.9); POTASSIUM SERUM 4.3 MEQ/L (3.5-5.1); SODIUM LEVEL 145 MEQ/L (136-145); TOTAL IRON BINDING CAPACITY 308 UG/DL (250-450); TOTAL PROTEIN 6.5 GM/DL (6.4-8.2)
[2021-05-27 17:39] LABS: BASO # 0.1 10^3/uL (0.0-0.2); BASO % 0.8 % (0.0-1.0); EOS # 0.4 10^3/uL (0.0-0.5); EOS % 4.7 % (0.0-3.0); HEMATOCRIT 41.1 % (36.0-47.0); HEMOGLOBIN 13.4 g/dl (12.0-15.5); LYMPH # 2.8 10^3/uL (1.5-5.0); LYMPH % 37.5 % (24.0-44.0); MEAN CORPUSCULAR HEMOGLOBIN 28.6 pg (27.0-33.0); MEAN CORPUSCULAR HGB CONC 32.6 g/dl (32.0-36.5); MEAN CORPUSCULAR VOLUME 87.6 fl (80.0-96.0); MONO # 0.5 10^3/uL (0.0-0.8); MONO % 7.3 % (2.0-8.0); NEUTROPHILS # 3.7 10^3/uL (1.5-8.5); NEUTROPHILS % 49.6 % (36.0-66.0); PLATELET COUNT, AUTOMATED 229 10^3/uL (150-450); RED BLOOD COUNT 4.69 10^6/uL (4.00-5.40); WHITE BLOOD COUNT 7.4 10^3/uL (4.0-10.0)
[2021-05-27 17:40] LABS: HEMATOCRIT 41.7 % (36.0-47.0)
[2021-05-27 17:41] LABS: TOTAL 25(OH) VITAMIN D 23.5 NG/ML (30.0-100.0); VITAMIN B12 LEVEL 1517 PG/ML (247-911)
[2021-05-27 18:04] LABS: HEMOGLOBIN A1c 5.1 %
== END ==
LOC: M WUC 13:17
PROVIDERS: ATTEND Physician Assistant Surgical
DX: K91.2 Postsurgical malabsorption, not elsewhere classified (principal); Z98.84 Bariatric surgery status; E55.9 Vitamin D deficiency, unspecified; Z86.39 Personal history of other endocrine, nutritional and metabolic disease

== ENCOUNTER → 2021-07-05 | Outpatient (REF) | payer OTHER ==
[2021-07-05 16:52] LABS: APPEARANCE, URINE CLOUDY (CLEAR); BACTERIA, URINE AUTO 1+ (NEGATIVE); BILIRUBIN, URINE AUTO NEGATIVE (NEGATIVE); BLOOD, URINE BLOOD 1+ (NEGATIVE); CALCIUM OXALATE CRYSTALS SMALL; COLOR, URINE AMBER (YELLOW); GLUCOSE, URINE (UA) AUTO NEGATIVE (NEGATIVE); KETONE, URINE AUTO NEGATIVE (NEGATIVE); LEUKOCYTE ESTERASE, URINE AUTO 3+ (NEGATIVE); MUCUS, URINE LARGE (NEGATIVE); NITRITE, URINE AUTO NEGATIVE (NEGATIVE); PROTEIN, URINE AUTO 1+ mg/dL (NEGATIVE); RBC, URINE AUTO 4 /HPF (0-3); SPECIFIC GRAVITY URINE AUTO 1.028 (1.002-1.035); SQUAMOUS EPITHELIAL CELL UR AU 47 /HPF (0-6); TRANSITIONAL EPITHELIAL AUTO 1 /HPF; WBC, URINE AUTO TNTC /HPF (0-3)
== END ==
LOC: M LAB REF 16:30
PROVIDERS: ATTEND Physician Assistant Medical
DX: N39.0 Urinary tract infection, site not specified (principal)

== ENCOUNTER → 2021-10-15 | Outpatient (CLI) | payer OTHER ==
--- NOTE | 2021-10-15 09:47 | REP ---
INDICATION: DYSPNEA, UNSPECIFIED COMPARISON: 11/01/2019 TECHNIQUE: PA and lateral. FINDINGS: The mediastinum and cardiac silhouette are normal. The lung shine are clear and without acute consolidation, effusion, or pneumothorax. The skeletal structures are intact and normal. IMPRESSION: No acute cardiopulmonary process. <Electronically signed by Yves Summers > 10/15/21 0974
[2021-10-15 10:34] LABS: BASO # 0.1 10^3/uL (0.0-0.2); BASO % 1.3 % (0.0-1.0); EOS # 0.6 10^3/uL (0.0-0.5); EOS % 7.9 % (0.0-3.0); HEMATOCRIT 36.5 % (36.0-47.0); HEMOGLOBIN 12.1 g/dl (12.0-15.5); LYMPH # 2.3 10^3/uL (1.5-5.0); LYMPH % 32.2 % (24.0-44.0); MEAN CORPUSCULAR HEMOGLOBIN 29.3 pg (27.0-33.0); MEAN CORPUSCULAR HGB CONC 33.2 g/dl (32.0-36.5); MEAN CORPUSCULAR VOLUME 88.4 fl (80.0-96.0); MONO # 0.4 10^3/uL (0.0-0.8); MONO % 5.6 % (2.0-8.0); NEUTROPHILS # 3.7 10^3/uL (1.5-8.5); NEUTROPHILS % 52.9 % (36.0-66.0); PLATELET COUNT, AUTOMATED 280 10^3/uL (150-450); RED BLOOD COUNT 4.13 10^6/uL (4.00-5.40)
== END ==
LOC: M RAD 09:29
PROVIDERS: ATTEND Physician Assistant
DX: R06.00 Dyspnea, unspecified (principal)

== ENCOUNTER → 2022-04-21 | Outpatient (CLI) | payer OTHER ==
[~2022-04-21] MED LIST changes: -MONT10TA10; +MONT10TA97
[2022-04-21 11:12] LABS: HEMATOCRIT 39.7 % (36.0-47.0)
[2022-04-21 11:14] LABS: BASO % 0.5 % (0.0-1.0); EOS # 0.3 10^3/uL (0.0-0.5); EOS % 3.3 % (0.0-3.0); HEMATOCRIT 39.6 % (36.0-47.0); LYMPH # 2.8 10^3/uL (1.5-5.0); LYMPH % 35.5 % (24.0-44.0); MEAN CORPUSCULAR HEMOGLOBIN 30.3 pg (27.0-33.0); MEAN CORPUSCULAR HGB CONC 32.8 g/dl (32.0-36.5); MEAN CORPUSCULAR VOLUME 92.3 fl (80.0-96.0); MONO # 0.4 10^3/uL (0.0-0.8); MONO % 4.6 % (2.0-8.0); NEUTROPHILS # 4.4 10^3/uL (1.5-8.5); NEUTROPHILS % 55.8 % (36.0-66.0); PLATELET COUNT, AUTOMATED 201 10^3/uL (150-450); RED BLOOD COUNT 4.29 10^6/uL (4.00-5.40); WHITE BLOOD COUNT 7.9 10^3/uL (4.0-10.0)
[2022-04-21 12:14] LABS: ALBUMIN 3.6 GM/DL (3.2-5.2); ALT/SGPT 24 U/L (12-78); BILIRUBIN,TOTAL 0.8 MG/DL (0.2-1.0); BLOOD UREA NITROGEN 15 MG/DL (7-18); CALCIUM LEVEL 9.3 MG/DL (8.5-10.1); CARBON DIOXIDE LEVEL 26 MEQ/L (21-32); CHLORIDE LEVEL 108 MEQ/L (98-107); CREATININE FOR GFR 0.64 MG/DL (0.55-1.30); FERRITIN 37 NG/ML (8-252); GLOMERULAR FILTRATION RATE > 60.0 (>60); GLUCOSE, FASTING 72 MG/DL (70-100); IRON (FE) 111 UG/DL (50-170); PERCENT SATURATION 29.1 % (13.2-45.0); PHOSPHORUS LEVEL 3.1 MG/DL (2.5-4.9); POTASSIUM SERUM 3.9 MEQ/L (3.5-5.1); SODIUM LEVEL 142 MEQ/L (136-145); TOTAL 25(OH) VITAMIN D 28.3 NG/ML (30.0-100.0); TOTAL IRON BINDING CAPACITY 382 UG/DL (250-450); TOTAL PROTEIN 6.4 GM/DL (6.4-8.2); VITAMIN B12 LEVEL 363 PG/ML (247-911)
[2022-04-21 15:22] LABS: HEMOGLOBIN A1c 4.8 %
== END ==
LOC: M WUC 08:21
PROVIDERS: ATTEND Physician Assistant Surgical
DX: K91.2 Postsurgical malabsorption, not elsewhere classified (principal); Z98.84 Bariatric surgery status; E55.9 Vitamin D deficiency, unspecified; Z86.39 Personal history of other endocrine, nutritional and metabolic disease

== ENCOUNTER → 2022-04-30 | Outpatient (REF) | payer OTHER | LOC: M LAB REF 16:07 | PROVIDERS: ATTEND Physician Assistant | DX: M79.10 Myalgia, unspecified site (principal) ==

== ENCOUNTER 2022-12-23 16:33 | Emergency (ER) | payer OTHER ==
[~2022-12-23] VITALS: Ht 160 cm; Wt 66.7 kg
[2022-12-23] MEDS ORDERED: ACETAMINOPHEN 325 MG TAB PO ONE (16:55)
[2022-12-23 18:02] LABS: HEMATOCRIT 30.6 % (36.0-47.0); HEMOGLOBIN 10.7 g/dl (12.0-15.5); MEAN CORPUSCULAR HEMOGLOBIN 30.5 pg (27.0-33.0); MEAN CORPUSCULAR VOLUME 87.2 fl (80.0-96.0); PLATELET COUNT, AUTOMATED 170 10^3/uL (150-450); RED BLOOD COUNT 3.51 10^6/uL (4.00-5.40); WHITE BLOOD COUNT 9.8 10^3/uL (4.0-10.0)
[2022-12-23] MEDS ORDERED: NS 1,000 ML IV ONE (18:20)
[2022-12-23 18:35] LABS: LIPASE 16 U/L (12-53)
[2022-12-23 18:39] LABS: ALBUMIN 2.6 G/DL (3.2-5.2); ALKALINE PHOSPHATASE 62 U/L (46-116); ALT/SGPT 10 U/L (7.0-40); AST/SGOT 10 U/L (<34); BILIRUBIN,DIRECT 0.4 MG/DL (<0.4); BILIRUBIN,TOTAL 0.8 MG/DL (0.3-1.2); BLOOD UREA NITROGEN 17 MG/DL (9-23); CALCIUM LEVEL 7.8 MG/DL (8.5-10.1); CARBON DIOXIDE LEVEL 24 MMOL/L (20-31); CHLORIDE LEVEL 101 MMOL/L (98-107); CREATININE FOR GFR 0.67 MG/DL (0.55-1.30); GLOMERULAR FILTRATION RATE > 60.0 (>60); GLUCOSE, FASTING 96 MG/DL (60-100); POTASSIUM SERUM 3.1 MMOL/L (3.5-5.1); SODIUM LEVEL 133 MMOL/L (136-145); TOTAL PROTEIN 5.3 G/DL (5.7-8.2)
[2022-12-23 18:50] LABS: HCG, SERUM QUALITATIVE NEGATIVE (NEGATIVE)
[2022-12-23 18:53] LABS: ATYPICAL LYMPH 1 % (0-5); LYMPHOCYTES 9 % (16-44); METAMYELOCYTES 1 % (0-0); MONOCYTES 2 % (0-5); NEUTROPHILS 69 % (28-66)
[2022-12-23 18:55] LABS: PLATELET ESTIMATE NORMAL (NORMAL)
[2022-12-23 19:03] LABS: DOHLE BODIES 4+; TOXIC VACUOLATION 1+
[2022-12-23] MEDS ORDERED: AMOXICILLIN 500 MG CAP PO ONE (19:45)
[2022-12-23] MEDS ORDERED: IPRATROPIUM 0.5MG/ALBUTEROL 2.5MG INH SOL UD 3ML (DUONEB) NEB ONE (19:45)
[2022-12-23] MEDS ORDERED: AZITHROMYCIN 250MG TABLET PO ONE (19:45)
[2022-12-23] MEDS ORDERED: AZIT-12 PO (19:46)
[2022-12-23] MEDS ORDERED: AMOX500C PO (19:46)
[2022-12-23] MEDS ORDERED: ALBU2.5V10 NEB (19:46)
[2022-12-23 20:09] VITALS: BP 112/57
== END 2022-12-23 20:30 | disposition home or self-care (01) ==
LOC: M ED 16:33 → EDBD 16:33 → M ED 20:30
DX: J18.9 Pneumonia, unspecified organism (principal); J45.909 Unspecified asthma, uncomplicated; Z98.84 Bariatric surgery status; Z79.52 Long term (current) use of systemic steroids; Z79.890 Hormone replacement therapy; Z79.899 Other long term (current) drug therapy

== ENCOUNTER → 2023-01-05 | Outpatient (CLI) | payer OTHER ==
[~2023-01-05] MED LIST changes: +ALBU2.5V10 NEB; +AZIT-12 PO
== END ==
LOC: M WUC 08:49
PROVIDERS: ATTEND Nurse Practitioner Family
DX: J18.9 Pneumonia, unspecified organism (principal)

== ENCOUNTER 2023-01-08 13:33 | Emergency (ER) | payer OTHER ==
[~2023-01-08] VITALS: Ht 160 cm; Wt 66.8 kg
[2023-01-08] MEDS ORDERED: SUCR1TAB56 (14:00)
[2023-01-08] MEDS ORDERED: LARI1TAB (14:00)
[2023-01-08] MEDS ORDERED: OMEP40CA5 (14:00)
[2023-01-08] MEDS ORDERED: CETI-24 (14:00)
[2023-01-08 14:35] LABS: BASO # 0.1 10^3/uL (0.0-0.2); BASO % 1.3 % (0.0-1.0); EOS # 0.1 10^3/uL (0.0-0.5); EOS % 1.4 % (0.0-3.0); HEMATOCRIT 39.5 % (36.0-47.0); HEMOGLOBIN 12.6 g/dl (12.0-15.5); LYMPH # 2.8 10^3/uL (1.5-5.0); LYMPH % 39.3 % (24.0-44.0); MEAN CORPUSCULAR HEMOGLOBIN 29.8 pg (27.0-33.0); MEAN CORPUSCULAR HGB CONC 31.9 g/dl (32.0-36.5); MEAN CORPUSCULAR VOLUME 93.4 fl (80.0-96.0); MONO # 0.3 10^3/uL (0.0-0.8); MONO % 4.5 % (2.0-8.0); NEUTROPHILS # 3.8 10^3/uL (1.5-8.5); NEUTROPHILS % 53.4 % (36.0-66.0); PLATELET COUNT, AUTOMATED 351 10^3/uL (150-450); RED BLOOD COUNT 4.23 10^6/uL (4.00-5.40); WHITE BLOOD COUNT 7.1 10^3/uL (4.0-10.0)
[2023-01-08 14:48] LABS: INR 0.93; PARTIAL THROMBOPLASTIN TIME 29.7 SECONDS (24.8-34.2); PROTHROMBIN TIME 12.7 SECONDS (12.5-14.5)
[2023-01-08 15:00] LABS: BLOOD UREA NITROGEN 15 MG/DL (9-23); CARBON DIOXIDE LEVEL 29 MMOL/L (20-31); CHLORIDE LEVEL 105 MMOL/L (98-107); CK-MB VALUE MASS < 1.0 NG/ML (<3.6); CPK CREATINE PHOSPHOKINASE 34 U/L (34-145); CREATININE FOR GFR 0.59 MG/DL (0.55-1.30); GLOMERULAR FILTRATION RATE > 60.0 (>60); GLUCOSE, FASTING 86 MG/DL (60-100); MAGNESIUM LEVEL 1.8 MG/DL (1.8-2.4); MB/CK RELATIVE INDEX 2.94 (< OR =4); POTASSIUM SERUM 4.4 MMOL/L (3.5-5.1); SODIUM LEVEL 139 MMOL/L (136-145)
[2023-01-08 15:02] LABS: HCG, SERUM QUALITATIVE NEGATIVE (NEGATIVE)
[2023-01-08 15:03] LABS: THYROID STIMULATING HORMONE 3.813 uIU/ML (0.55-4.78)
[2023-01-08] MEDS ORDERED: NS 1,000 ML IV ONE (16:35)
[2023-01-08] MEDS ORDERED: ISOVUE-370 76% 100ML VIAL As Ordered ONE (16:39)
[2023-01-08 17:53] VITALS: BP 118/67
[2023-01-08] MEDS ORDERED: HOLTER MONITOR XX ×2 (17:54→17:56)
== END 2023-01-08 18:12 | disposition home or self-care (01) ==
LOC: M ED 13:33
DX: R07.9 Chest pain, unspecified (principal); R00.2 Palpitations; J45.909 Unspecified asthma, uncomplicated; R51.9 Headache, unspecified; Z98.84 Bariatric surgery status; Z88.1 Allergy status to other antibiotic agents; Z79.52 Long term (current) use of systemic steroids; Z79.83 Long term (current) use of bisphosphonates; Z79.899 Other long term (current) drug therapy
CPT/HCPCS: 71275; 80048; 82550; 82553; 83735; 84443; 84703; 85025; 85610; 85730; 93005; 96360; 99284; Q9967

== ENCOUNTER → 2023-01-10 | Outpatient (CLI) | payer OTHER ==
[~2023-01-10] MED LIST changes: +CETI-24; +HOLTER MONITOR XX; +LARI1TAB; +OMEP40CA5; +SUCR1TAB56
== END ==
LOC: M EKG 10:12
PROVIDERS: ATTEND Physician Assistant
DX: R00.2 Palpitations (principal)

== ENCOUNTER → 2023-03-11 | Outpatient (REF) | payer OTHER ==
[2023-03-11 13:20] LABS: BASO # 0.1 10^3/uL (0.0-0.2); BASO % 0.9 % (0.0-1.0); EOS # 0.2 10^3/uL (0.0-0.5); EOS % 2.6 % (0.0-3.0); HEMATOCRIT 42.1 % (36.0-47.0); LYMPH # 2.3 10^3/uL (1.5-5.0); LYMPH % 33.9 % (24.0-44.0); MEAN CORPUSCULAR HEMOGLOBIN 29.9 pg (27.0-33.0); MEAN CORPUSCULAR HGB CONC 33.3 g/dl (32.0-36.5); MEAN CORPUSCULAR VOLUME 89.8 fl (80.0-96.0); MONO # 0.3 10^3/uL (0.0-0.8); MONO % 4.5 % (2.0-8.0); NEUTROPHILS % 57.8 % (36.0-66.0); PLATELET COUNT, AUTOMATED 236 10^3/uL (150-450); RED BLOOD COUNT 4.69 10^6/uL (4.00-5.40); WHITE BLOOD COUNT 6.9 10^3/uL (4.0-10.0)
[2023-03-11 14:00] LABS: HEMOGLOBIN A1c 4.9 % (4.0-6.0)
[2023-03-11 14:01] LABS: TOTAL 25(OH) VITAMIN D 25.3 NG/ML (20.0-100.0)
[2023-03-11 14:02] LABS: THYROID STIMULATING HORMONE 4.635 uIU/ML (0.55-4.78)
[2023-03-11 14:07] LABS: ALBUMIN 3.6 G/DL (3.2-5.2); ALKALINE PHOSPHATASE 88 U/L (46-116); ALT/SGPT 30 U/L (7.0-40); AST/SGOT 24 U/L (<34); BILIRUBIN,TOTAL 0.8 MG/DL (0.3-1.2); BLOOD UREA NITROGEN 11 MG/DL (9-23); CALCIUM LEVEL 9.2 MG/DL (8.5-10.1); CARBON DIOXIDE LEVEL 28 MMOL/L (20-31); CHLORIDE LEVEL 106 MMOL/L (98-107); CHOLESTEROL LEVEL 212 MG/DL (<200); CREATININE FOR GFR 0.62 MG/DL (0.55-1.30); GLOMERULAR FILTRATION RATE > 60.0 (>60); GLUCOSE, FASTING 74 MG/DL (60-100); HDL CHOLESTEROL 60.4 MG/DL (>40); LDL CHOLESTEROL 131.4 MG/DL (<100); NON-HDL-C 151.6 MG/DL; POTASSIUM SERUM 4.3 MMOL/L (3.5-5.1); SODIUM LEVEL 142 MMOL/L (136-145); TOTAL PROTEIN 6.4 G/DL (5.7-8.2); TRIGLYCERIDES LEVEL 101 MG/DL (<150)
== END ==
LOC: M LAB REF 12:01
PROVIDERS: ATTEND Nurse Practitioner Family
DX: Z13.228 Encounter for screening for other metabolic disorders (principal)

== ENCOUNTER 2023-06-08 10:16 | Emergency (ER) | payer OTHER ==
[~2023-06-08] VITALS: Ht 160 cm; Wt 66.7 kg
[2023-06-08] MEDS ORDERED: MISO100T22 PO (10:39)
[2023-06-08 12:16] LABS: INR 1.08; PROTHROMBIN TIME 13.7 SECONDS (12.5-14.5)
[2023-06-08 12:17] LABS: PARTIAL THROMBOPLASTIN TIME 33.1 SECONDS (24.8-34.2)
[2023-06-08 12:22] LABS: LIPASE 30 U/L (12-53)
[2023-06-08 12:23] LABS: AMYLASE 56 U/L (30-118); HCG, SERUM QUALITATIVE NEGATIVE (NEGATIVE)
[2023-06-08 12:24] LABS: ALBUMIN 3.7 G/DL (3.2-5.2); ALKALINE PHOSPHATASE 96 U/L (46-116); ALT/SGPT 20 U/L (7.0-40); AST/SGOT 8 U/L (<34); BILIRUBIN,DIRECT 0.2 MG/DL (<0.4); BILIRUBIN,TOTAL 0.8 MG/DL (0.3-1.2); BLOOD UREA NITROGEN 17 MG/DL (9-23); CALCIUM LEVEL 9.4 MG/DL (8.5-10.1); CARBON DIOXIDE LEVEL 28 MMOL/L (20-31); CHLORIDE LEVEL 108 MMOL/L (98-107); CREATININE FOR GFR 0.54 MG/DL (0.55-1.30); GLOMERULAR FILTRATION RATE > 60.0 (>60); GLUCOSE, FASTING 78 MG/DL (60-100); POTASSIUM SERUM 3.8 MMOL/L (3.5-5.1); SODIUM LEVEL 143 MMOL/L (136-145); TOTAL PROTEIN 6.8 G/DL (5.7-8.2)
[2023-06-08 12:33] LABS: BASO # 0.1 10^3/uL (0.0-0.2); EOS # 0.3 10^3/uL (0.0-0.5); EOS % 3.7 % (0.0-3.0); HEMATOCRIT 38.4 % (36.0-47.0); HEMOGLOBIN 12.6 g/dl (12.0-15.5); LYMPH # 1.9 10^3/uL (1.5-5.0); LYMPH % 23.8 % (24.0-44.0); MEAN CORPUSCULAR HEMOGLOBIN 29.6 pg (27.0-33.0); MEAN CORPUSCULAR HGB CONC 32.8 g/dl (32.0-36.5); MEAN CORPUSCULAR VOLUME 90.1 fl (80.0-96.0); MONO # 0.4 10^3/uL (0.0-0.8); MONO % 5.5 % (2.0-8.0); NEUTROPHILS # 5.1 10^3/uL (1.5-8.5); NEUTROPHILS % 65.7 % (36.0-66.0); PLATELET COUNT, AUTOMATED 289 10^3/uL (150-450); RED BLOOD COUNT 4.26 10^6/uL (4.00-5.40); WHITE BLOOD COUNT 7.8 10^3/uL (4.0-10.0)
[2023-06-08] MEDS ORDERED: PANTOPRAZOLE 40MG VIAL IV ONE (12:50)
[2023-06-08] MEDS ORDERED: ISOVUE-370 76% 100ML VIAL As Ordered ONE (13:05)
[2023-06-08] MEDS ORDERED: NS 1,000 ML IV ONE (14:35)
[2023-06-08 15:27] VITALS: BP 117/66; TEMP 98.3; O2SAT 98
== END 2023-06-08 16:18 | disposition home or self-care (01) ==
LOC: M ED 10:16
DX: A02.0 Salmonella enteritis (principal); K27.9 Peptic ulcer, site unspecified, unspecified as acute or chronic, without hemorrhage or perforation; F12.10 Cannabis abuse, uncomplicated; Z88.1 Allergy status to other antibiotic agents; Z79.52 Long term (current) use of systemic steroids; Z79.83 Long term (current) use of bisphosphonates; Z79.899 Other long term (current) drug therapy
CPT/HCPCS: 71046; 74177; 80048; 80076; 82150; 83605; 83690; 84703; 85025; 85610; 85730; 86850; 86900; 86901; 87507; 93005; 96374; 99284; C9113; Q9967

== ENCOUNTER 2023-11-18 11:21 | Emergency (ER) | payer OTHER ==
[~2023-11-18] VITALS: Ht 160 cm; Wt 70.4 kg
[~2023-11-18 11:21] MED LIST changes: +LORA-1041; -LORA-674; +MISO100T32 PO
[2023-11-18 12:35] LABS: BASO # 0.1 10^3/uL (0.0-0.2); BASO % 0.6 % (0.0-1.0); EOS # 0.2 10^3/uL (0.0-0.5); EOS % 2.2 % (0.0-3.0); HEMOGLOBIN 12.5 g/dl (12.0-15.5); LYMPH # 2.4 10^3/uL (1.5-5.0); LYMPH % 25.7 % (24.0-44.0); MEAN CORPUSCULAR HEMOGLOBIN 29.6 pg (27.0-33.0); MEAN CORPUSCULAR HGB CONC 32.9 g/dl (32.0-36.5); MEAN CORPUSCULAR VOLUME 89.8 fl (80.0-96.0); MONO # 0.6 10^3/uL (0.0-0.8); MONO % 6.1 % (2.0-8.0); NEUTROPHILS # 6.2 10^3/uL (1.5-8.5); NEUTROPHILS % 65.2 % (36.0-66.0); PLATELET COUNT, AUTOMATED 286 10^3/uL (150-450); RED BLOOD COUNT 4.23 10^6/uL (4.00-5.40); WHITE BLOOD COUNT 9.5 10^3/uL (4.0-10.0)
[2023-11-18 12:56] LABS: CK-MB VALUE MASS < 1.0 NG/ML (<3.6)
[2023-11-18 12:57] LABS: BLOOD UREA NITROGEN 10 MG/DL (9-23); CALCIUM LEVEL 8.9 MG/DL (8.5-10.1); CARBON DIOXIDE LEVEL 28 MMOL/L (20-31); CHLORIDE LEVEL 107 MMOL/L (98-107); CPK CREATINE PHOSPHOKINASE 104 U/L (34-145); CREATININE FOR GFR 0.64 MG/DL (0.55-1.30); GLOMERULAR FILTRATION RATE > 60.0 (>60); GLUCOSE, FASTING 71 MG/DL (60-100); MB/CK RELATIVE INDEX 0.96 (< OR =4); POTASSIUM SERUM 3.9 MMOL/L (3.5-5.1); SODIUM LEVEL 141 MMOL/L (136-145)
[2023-11-18] MEDS ORDERED: ISOVUE-370 76% 100ML VIAL As Ordered ONE (13:28)
[2023-11-18] MEDS ORDERED: BENZ200C70 PO (14:49)
[2023-11-18] MEDS ORDERED: LEVO1TAB40 PO (14:49)
[2023-11-18] MEDS ORDERED: ALBU6.7H6 INH (14:49)
[2023-11-18] MEDS ORDERED: LevoFLOXacin 750 MG TABLET PO ONE (14:50)
[2023-11-18 15:03] VITALS: BP 110/69; TEMP 97.1; O2SAT 100
== END 2023-11-18 15:14 | disposition home or self-care (01) ==
LOC: M ED 11:21
DX: J18.9 Pneumonia, unspecified organism (principal); E03.9 Hypothyroidism, unspecified; K21.9 Gastro-esophageal reflux disease without esophagitis; J45.909 Unspecified asthma, uncomplicated; R00.1 Bradycardia, unspecified; F12.10 Cannabis abuse, uncomplicated; Z88.1 Allergy status to other antibiotic agents; Z98.84 Bariatric surgery status; Z79.52 Long term (current) use of systemic steroids; Z79.83 Long term (current) use of bisphosphonates; Z79.899 Other long term (current) drug therapy
CPT/HCPCS: 36415; 71046; 71275; 80048; 82550; 82553; 85025; 87486; 87581; 87633; 87798; 93005; 99284; Q9967

== ENCOUNTER → 2024-06-16 | Outpatient (CLI) | payer OTHER ==
[~2024-06-16] MED LIST changes: +ALBU6.7H6 INH; +BENZ200C70 PO; +LEVO1TAB40 PO
[2024-06-16 13:13] LABS: HEMATOCRIT 39.2 % (36.0-47.0); HEMOGLOBIN 12.8 g/dl (12.0-15.5); MEAN CORPUSCULAR HEMOGLOBIN 28.6 pg (27.0-33.0); MEAN CORPUSCULAR HGB CONC 32.7 g/dl (32.0-36.5); MEAN CORPUSCULAR VOLUME 87.5 fl (80.0-96.0); PLATELET COUNT, AUTOMATED 246 10^3/uL (150-450); RED BLOOD COUNT 4.48 10^6/uL (4.00-5.40)
[2024-06-21 12:13] LABS: HPV APTIMA Not Detected (Not Detected)
== END ==
LOC: M PLALAB 09:10
PROVIDERS: ATTEND Obstetrics & Gynecology
DX: Z12.4 Encounter for screening for malignant neoplasm of cervix (principal); N93.9 Abnormal uterine and vaginal bleeding, unspecified

== ENCOUNTER → 2024-06-16 | Outpatient (CLI) | payer OTHER ==
[~2024-06-16] MED LIST changes: +METHACHOLINE KIT (6 VIAL.NEB PREMIX) INH ONE
== END ==
LOC: M CARPUL 14:46
PROVIDERS: ATTEND Internal Medicine Pulmonary Disease
DX: R05.9 Cough, unspecified (principal)
CPT/HCPCS: 94070; 95070; J7674

== ENCOUNTER → 2024-08-23 | Outpatient (CLI) | payer OTHER ==
[~2024-08-23] MED LIST changes: -METHACHOLINE KIT (6 VIAL.NEB PREMIX) INH ONE
== END ==
LOC: M WHC 14:41
PROVIDERS: ATTEND Obstetrics & Gynecology
DX: N93.9 Abnormal uterine and vaginal bleeding, unspecified (principal)

== ENCOUNTER → 2024-09-27 | Outpatient (REF) | payer OTHER | LOC: M LAB REF 16:22 | PROVIDERS: ATTEND Nurse Practitioner Family | DX: J06.9 Acute upper respiratory infection, unspecified (principal) ==

== ENCOUNTER 2024-11-02 08:44 | Observation (INO) | payer OTHER ==
[~2024-11-02] VITALS: Ht 160 cm; Wt 68.9 kg
[2024-11-02] VITALS (10 sets, daily range): BP systolic 111–165; BP diastolic 59–90; TEMP 97.3–98.5; O2SAT 95–100
[~2024-11-02 08:44] MED LIST changes: +ALBU10.7 INH; +FLUO40CA PO; +NORE1TAB90 PO; -OMEP40CA5; +OMEP40CA5 PO; -SUCR1TAB56; +SUCR1TAB56 PO
[2024-11-02] MEDS ORDERED: MIDAZOLAM INJ 2MG/2ML VIAL As Ordered ONE (09:12)
[2024-11-02] MEDS ORDERED: HYDROmorphone HCL 2MG/ML 1ML VIAL As Ordered ONE (09:12)
[2024-11-02] MEDS ORDERED: fentaNYL 100 MCG/2 ML INJECTION As Ordered ONE (09:12)
[2024-11-02] MEDS ORDERED: LIDOCAINE 2% 100MG/5ML SDV (FOR ANES.) As Ordered ONE (09:13)
[2024-11-02] MEDS ORDERED: SUGAMMADEX SODIUM 500 MG/5 ML VIAL (BRIDION) As Ordered ONE (09:13)
[2024-11-02] MEDS ORDERED: propofoL 200 MG/20 ML VIAL As Ordered ONE (09:13)
[2024-11-02] MEDS ORDERED: ROCURONIUM BROMIDE 50MG/5ML VIAL As Ordered ONE (09:13)
[2024-11-02] MEDS ORDERED: KETOROLAC 60MG 2ML VIAL As Ordered ONE (09:13)
[2024-11-02] MEDS ORDERED: ONDANSETRON 4MG 2ML VIAL As Ordered ONE (09:14)
[2024-11-02] MEDS: NS (Normal Saline) 0.9% 1,000 ML IV SCH (09:15)
[2024-11-02 09:47] LABS: HEMATOCRIT 38.9 % (36.0-47.0); HEMOGLOBIN 12.9 g/dl (12.0-15.5); MEAN CORPUSCULAR HEMOGLOBIN 29.3 pg (27.0-33.0); MEAN CORPUSCULAR HGB CONC 33.2 g/dl (32.0-36.5); MEAN CORPUSCULAR VOLUME 88.4 fl (80.0-96.0); PLATELET COUNT, AUTOMATED 269 10^3/uL (150-450); WHITE BLOOD COUNT 6.8 10^3/uL (4.0-10.0)
[2024-11-02] MEDS: SCOPOLAMINE 1MG TRANSDERMAL PATCH TOP ONE (09:55)
[2024-11-02] MEDS: ceFAZolin SOD 2 GM in IV 1 EA IV ONE (11:35)
[2024-11-02] MEDS: METHYLENE BLUE 0.5% (5MG/ML) 10 ML AMP (PROVAYBLUE) As Ordered ONE (12:24)
[2024-11-02] MEDS ORDERED: ONDANSETRON 4MG 2ML VIAL IV PRN ×2 (13:05→13:35)
[2024-11-02] MEDS ORDERED: PERCOCET 5MG/325MG TAB PO PRN ×2 (13:05)
[2024-11-02] MEDS ORDERED: MORPHINE 4 MG/ML 1ML VIAL IV PRN (13:05)
[2024-11-02] MEDS ORDERED: MEPERIDINE 50 MG/ML 1ML VIAL As Ordered ONE (13:21)
[2024-11-02] MEDS ORDERED: HYDROMORPHONE HCL 0.5 MG/ 0.5 ML SYRINGE IV PRN (13:35)
[2024-11-02] MEDS ORDERED: PROMETHAZINE 25MG/ML 1ML VIAL IV PRN (13:35)
[2024-11-02] MEDS ORDERED: KETOROLAC 30 MG/ML 1ML VIAL IV SCH (14:00)
[2024-11-02] MEDS: METOPROLOL 5 MG/5 ML VIAL IV ONE (14:14)
[2024-11-02] MEDS: oxyCODONE 5MG TAB PO PRN (14:15)
[2024-11-02] MEDS: LR 1,000 ML IV SCH (15:20)
[2024-11-02] MEDS: diphenhydrAMINE 50MG/ML VIAL IV PRN (18:16)
[2024-11-02] MEDS: DOCUSATE SODIUM 100MG CAPSULE PO SCH (20:09)
[2024-11-02] MEDS: ACETAMINOPHEN 500 MG TAB PO PRN (20:10)
[2024-11-03 02:05] VITALS: BP 100/54; TEMP 98.3; O2SAT 97
[2024-11-03 06:00] VITALS: BP 106/53; TEMP 97.5; O2SAT 97
[2024-11-03] MEDS: OMEPRAZOLE 20MG CAP PO SCH (09:47)
[2024-11-03] MEDS: FLUoxetine 20MG CAP PO SCH (09:47)
[2024-11-03] MEDS: SIMETHICONE 80MG CHEW TAB PO PRN (10:05)
[2024-11-03] MEDS ORDERED: ACET-683 PO (12:14)
[2024-11-03] MEDS ORDERED: COLA100C5 PO (12:14)
[2024-11-03] MEDS ORDERED: IBUPROFEN 800 MG TAB PO SCH (16:00)
== END 2024-11-03 12:55 | disposition home or self-care (01) ==
LOC: M SDC 08:44 → EEVIPCON 08:45 → M RR INP 08:45 → M OBS 15:07
PROVIDERS: ADMIT Obstetrics & Gynecology; ATTEND Obstetrics & Gynecology
DX: N93.9 Abnormal uterine and vaginal bleeding, unspecified (principal); R10.2 Pelvic and perineal pain; E03.9 Hypothyroidism, unspecified; E78.5 Hyperlipidemia, unspecified; F41.9 Anxiety disorder, unspecified; J45.909 Unspecified asthma, uncomplicated; F60.9 Personality disorder, unspecified; Z79.899 Other long term (current) drug therapy; Z83.3 Family history of diabetes mellitus; Z88.0 Allergy status to penicillin
CPT/HCPCS: 36415; 58571; 81025; 85027; 86850; 86900; 86901; 88307; 96374; J0665; J0690; J1100; J1171; J1200; J2175; J2250; J2405; J3010; Q9968; S2900

== ENCOUNTER → 2025-10-09 | Outpatient (REF) | payer OTHER, MEDICAID ==
[~2025-10-09] MED LIST changes: +ACET-683 PO; +NORE-28 PO; -NORE1TAB90 PO; +PROZ10CA11 PO; -PROZ10CA7 PO; -PROZ20CA11 PO; +PROZ20CA25 PO
== END ==
LOC: M LAB REF 11:55
PROVIDERS: ATTEND Physician Assistant Medical
DX: B34.9 Viral infection, unspecified (principal)